=== PATIENT | male | born 1985 | race Caucasian/White ===

== ENCOUNTER 2020-10-08 10:13 | Emergency (ER) | payer OTHER ==
[~2020-10-08] VITALS: Ht 182.9 cm; Wt 77.1 kg
[~2020-10-08 10:13] MED LIST: AMOCLA875 PO; AMOX500 PO; BENZ10TG MC; HYDACE5 PO; HYDACE7.5L PO; IBUP200; IBUP600 PO; IBUP800 PO; NEOPOLHCSU OT; ONDA4 PO; OXYACE5T PO; PRED20 PO; PROACE100 PO; RXCODGUASY PO; RXPROACE PO; RXTRAM50 PO
[2020-10-08] MEDS ORDERED: Cyclobenzaprine5 MG PO (11:54)
[2020-10-08] MEDS ORDERED: IBUP600 PO (11:54)
== END 2020-10-08 13:27 | disposition home or self-care (01) ==
LOC: ER 10:13
DX: S16.1XXA Strain of muscle, fascia and tendon at neck level, initial encounter (principal); F17.200 Nicotine dependence, unspecified, uncomplicated; V43.62XA Car passenger injured in collision with other type car in traffic accident, initial encounter; Y92.410 Unspecified street and highway as the place of occurrence of the external cause
CPT/HCPCS: 70450; 72040; 99284-25